=== PATIENT | female | born 1965 | race Caucasian/White ===

== ENCOUNTER 2016-12-25 06:52 | Day surgery (SDC) | payer BC ==
[~2016-12-25 06:52] MED LIST: RINGERS SOLUTION,LACTATED 1,000 ML IV PRN; ceFAZolin SODIUM 2 GM in DEXTROSE 5 % IN WATER 50 ML IV PRN
[2016-12-25 07:17] LABS: Hematocrit 41.3 % (37.0-47.0); Hemoglobin 13.7 gm/dL (12.5-16.0); Mean Cell Volume 86.9 fl (78-100); Mean Corpuscular Hemoglobin 28.8 pg (27-31); Mean Corpuscular Hgb Conc 33.2 g/dl (32-36); Mean Platelet Volume 10.2 fl (6.0-9.5); Neutrophil # 3.8 K/mm3 (1.3-6.0); Neutrophil % 64.9 % (42-75.0); Platelet Count 259 K/mm3 (150-450); Red Blood Count 4.75 M/mm3 (4.2-5.4); Red Cell Distribution Width 12.9 % (11.5-14.0); White Blood Count 5.9 K/mm3 (4.0-10.5)
[2016-12-25] MEDS ORDERED: RINGERS SOLUTION,LACTATED 1,000 ML IV ONE ×3 (07:39→10:30)
[2016-12-25] MEDS ORDERED: BUPIVACAINE HCL/EPINEPHRINE 50 ML VIAL IJ ONE ×2 (08:30)
--- NOTE | 2016-12-25 09:51 | OR ---
Operative Report - Dictated Report Narrative: Operative Report - 12/25/16 Total Vaginal Hysterectomy, Modified Yun's Culdoplasty, Bilateral Salpingectomy Preoperative Diagnosis: Menorrhagia, History of Simple Endometrial Hyperplasia without Atypia Postoperative Diagnosis: Menorrhagia, History of Simple Endometrial Hyperplasia without Atypia Procedure: Total Vaginal Hysterectomy, Modified Yun's Culdoplasty, Bilateral Salpingectomy Surgeon: Uriel Ya Anesthesia: Lety Mccracken CRNA, general anesthesia Findings: Normal appearing ovaries bilaterally. Uterus was boggy. Fluids: 900 ml EBL: 50 ml Drains: Straight cath after procedure, 50 mL of clear yellow urine Pathology: Uterus Complications: None Condition: Stable Procedure: The patient was taken to the operating room with IV fluids running. She was placed in the dorsal lithotomy position after anesthesia was induced. She was prepped and draped in the normal sterile fashion. A weighted speculum was placed in the posterior aspect of the vagina and a [place] retractor was placed in the anterior aspect of the vagina. [place] retractors were placed laterally. The cervix was grasped with 2 single-tooth tenaculums. The cervix was injected circumferentially with 0.5% Marcaine with epinephrine. A circumferential incision was made around the cervix using a Tadeo Diaz scissors. Attention was then turned posteriorly. Sharp dissection was performed until the posterior peritoneal reflection was clearly visualized. The peritoneum was then entered sharply. Location was confirmed by visualization of the bowel. [place] retractor was then placed into the abdominal cavity. Attention was then turned anteriorly. Sharp dissection was performed until the anterior peritoneal reflection was visualized. It was entered sharply using the Tadeo Diaz scissors. Location was confirmed by visualization of bowel. The [place] retractor was then placed into the abdominal cavity. Attention was then turned posteriorly. The uterosacral ligaments were clamped with a curved Ji, transected and suture ligated using 0 Vicryl. These ligatures were tagged for later modified Yun's culdoplasty. Attention was then turned to the cardinal ligaments. They were clamped with the gyrus Ji clamp, cauterized with the gyrus and transected. The uterine arteries were clamped with the gyrus Ji, cauterized and transected for excellent hemostasis. The cornual angles were clamped with Ji clamp bilaterally and the uterus was amputated. The cornual angles were suture ligated with 0 Vicryl for excellent hemostasis. The tubes and ovaries were clearly visualized and were grossly normal in appearance. The right fallopian tube was identified and was grasped and elevated. Gyrus Ji was used to cauterize and transect along the mesoovarium remove the tube from the cornual angle and mesoovarium. This was repeated on the left fallopian tube. The posterior vaginal cuff was reapproximated using 2-0 Vicryl in a running locked fashion for excellent hemostasis. The uterosacral tags were then utilized for culdoplasty. The suture was driven through the uterosacral ligament, reefed across the peritoneum posteriorly and brought out the midline of the posterior vaginal cuff. The vaginal cuff was closed in a vertical fashion with 2-0 Vicryl in a running lock stitch for excellent hemostasis. The culdoplasty stitch was tied down to elevate the vaginal cuff. The bladder was catheterized and clear yellow urine was drained. The patient tolerated the procedure well. Sponge lap needle and instrument counts are correct x 2. The patient was taken to the recovery room in stable condition.
[2016-12-25] MEDS ORDERED: oxyCODONE HCL/ACETAMINOPHEN 1 TAB TABLET PO PRN (10:42)
[2016-12-25] MEDS ORDERED: IBUPROFEN 600 MG TABLET PO PRN (10:43)
[2016-12-25] MEDS ORDERED: ONDANSETRON HCL/PF 2 MG/ML VIAL IV ONE (12:00)
[2016-12-25 13:19] VITALS: BP 125/74
== END 2016-12-25 06:53 | disposition home or self-care (01) ==
LOC: AMB 06:52
PROVIDERS: ATTEND Obstetrics & Gynecology
DX: N92.0 Excessive and frequent menstruation with regular cycle (principal); I10 Essential (primary) hypertension; E03.9 Hypothyroidism, unspecified; J45.909 Unspecified asthma, uncomplicated; Z68.31 Body mass index [BMI] 31.0-31.9, adult